=== PATIENT | male | born 1945 | race Caucasian/White ===

== ENCOUNTER → 2016-10-13 | Outpatient (CLI) | payer BC, MEDICAID ==
[~2016-10-13] MED LIST: ASPI-498 PO; ATOR20TA PO; CLOP75TA28 PO; ENAL5TAB92 PO; FEBU80TA PO; METO25TA62 PO
[2016-10-13 09:51] LABS: Basophils # (auto) 0 uL; Basophils % (auto) 0.4 % (0.0-2.0); Eosinophils # (auto) 0.2 uL; Eosinophils % (auto) 2.6 % (0.0-7.0); Hematocrit 41.4 % (41.0-53.0); Lymphocytes # (auto) 1.9 uL; Lymphocytes % (auto) 29.9 % (10.0-50.0); Mean Corpuscular Hemoglobin 29.5 pg (28.0-32.0); Mean Corpuscular Hgb Conc. 33.7 g/dL (32.0-36.0); Mean Corpuscular Volume 87.4 fL (80.0-100.0); Monocytes # (auto) 0.4 uL; Monocytes % (auto) 5.7 % (0.0-12.0); Neutrophils # (auto) 3.9 uL; Neutrophils % (auto) 61.4 % (37.0-80.0); Platelet Count (auto) 209 10^3/uL (140-450); Red Cell Distribution Width 14.4 % (11.6-16.0); White Blood Cell 6.3 10^3/uL (4.4-10.8)
[2016-10-13 10:43] LABS: Urine Bilirubin Negative (Negative); Urine Blood Negative /uL (Negative); Urine Color Yellow (Yellow); Urine Glucose Normal (Normal); Urine Ketone Negative (Negative); Urine Nitrite Negative (Negative); Urine RBC 1 /hpf (0 - 3); Urine Urobilinogen Normal (Negative)
[2016-10-13 11:20] LABS: Albumin 4.2 g/dL (3.4-5.0); BUN/Creatinine Ratio 13.3; Bilirubin, Total 0.6 mg/dL (0.2-1.0); Calcium 9.5 mg/dL (8.5-10.1); Potassium 4.3 mmol/L (3.5-5.1); Total Protein 7.5 g/dL (6.4-8.2)
== END | disposition home or self-care (01) ==
LOC: LAB 09:07
PROVIDERS: ATTEND Family Medicine
DX: M10.9 Gout, unspecified (principal); I10 Essential (primary) hypertension; E78.5 Hyperlipidemia, unspecified
CPT/HCPCS: 36415; 80053; 80061; 81001; 84153; 84154; 85025; 86592

== ENCOUNTER → 2017-06-01 | Outpatient (CLI) | payer BC ==
[2017-06-02 12:07] LABS: HSV 2 IgG Antibody >23.60 index (0.00-0.90)
== END | disposition home or self-care (01) ==
LOC: LAB 10:47
PROVIDERS: ATTEND Physician Assistant
DX: Z11.3 Encounter for screening for infections with a predominantly sexual mode of transmission (principal)
CPT/HCPCS: 36415; 86592; 86695; 86696; 86703; 86803

== ENCOUNTER 2018-07-06 00:17 | Emergency (ER) | payer MEDICARE, MEDICAID ==
[~2018-07-06] VITALS: Ht 188 cm; Wt 114.3 kg
[~2018-07-06 00:17] MED LIST changes: +ENAL5TAB PO; -ENAL5TAB92 PO
[2018-07-06 01:49] VITALS: BP 176/90
[2018-07-06 01:55] LABS: Basophils # (auto) 0.1 uL; Basophils % (auto) 0.5 % (0.0-2.0); Eosinophils # (auto) 0.3 uL; Hematocrit 41.6 % (41.0-53.0); Hemoglobin 14.2 g/dL (13.5-17.5); Lymphocytes # (auto) 2.2 uL; Lymphocytes % (auto) 16.9 % (10.0-50.0); Mean Corpuscular Hemoglobin 30.6 pg (28.0-32.0); Mean Corpuscular Volume 89.8 fL (80.0-100.0); Monocytes % (auto) 7.3 % (0.0-12.0); Neutrophils # (auto) 9.7 uL; Neutrophils % (auto) 73.3 % (37.0-80.0); Platelet Count (auto) 195 10^3/uL (140-450); Red Blood Cells 4.64 10^6/uL (4.5-5.90); Red Cell Distribution Width 13.4 % (11.8-14.3); White Blood Cell 13.3 10^3/uL (4.4-10.8)
[2018-07-06] MEDS ORDERED: methylPREDNISolone SOD SUCC 125 MG/2 ML VL IM ONE (02:30)
[2018-07-06] MEDS ORDERED: cefTRIAXone SOD 1,000 MG VL IM ONE (02:30)
[2018-07-06] MEDS ORDERED: cefTRIAXone SOD 1,000 MG VL ONE (02:47)
[2018-07-06] MEDS ORDERED: methylPREDNISolone SOD SUCC 125 MG/2 ML VL ONE (02:47)
== END 2018-07-06 03:00 | disposition home or self-care (01) ==
LOC: ER 00:19
DX: J02.0 Streptococcal pharyngitis (principal); J44.9 Chronic obstructive pulmonary disease, unspecified; E78.5 Hyperlipidemia, unspecified; I10 Essential (primary) hypertension; I25.2 Old myocardial infarction; M10.9 Gout, unspecified; Z79.82 Long term (current) use of aspirin; Z79.899 Other long term (current) drug therapy; Z98.61 Coronary angioplasty status
CPT/HCPCS: 36415; 71046; 85025; 96372; 99284; J0696; J2930

== ENCOUNTER → 2019-03-29 | Outpatient (CLI) | payer BC, MEDICAID ==
[2019-03-29 14:34] LABS: Basophils # (auto) 0 uL; Basophils % (auto) 0.7 % (0.0-2.0); Eosinophils # (auto) 0.2 uL; Eosinophils % (auto) 2.8 % (0.0-7.0); Hematocrit 43.7 % (41.0-53.0); Hemoglobin 14.9 g/dL (13.5-17.5); Lymphocytes # (auto) 1.9 uL; Lymphocytes % (auto) 27.5 % (10.0-50.0); Mean Corpuscular Hemoglobin 30.7 pg (28.0-32.0); Mean Corpuscular Hgb Conc. 34.1 g/dL (32.0-36.0); Mean Corpuscular Volume 89.9 fL (80.0-100.0); Monocytes # (auto) 0.4 uL; Monocytes % (auto) 6.1 % (0.0-12.0); Neutrophils # (auto) 4.3 uL; Neutrophils % (auto) 62.9 % (37.0-80.0); Platelet Count (auto) 184 10^3/uL (140-450); Red Blood Cells 4.86 10^6/uL (4.5-5.90); Red Cell Distribution Width 13.6 % (11.8-14.3); White Blood Cell 6.8 10^3/uL (4.4-10.8)
[2019-03-29 14:57] LABS: Albumin 4.6 g/dL (3.4-5.0); Calcium 8.9 mg/dL (8.5-10.1); Potassium 4.3 mmol/L (3.5-5.1)
[2019-03-29 15:00] LABS: BUN/Creatinine Ratio 28.6; Bilirubin, Total 0.7 mg/dL (0.2-1.0); Total Protein 8.2 g/dL (6.4-8.2)
== END | disposition home or self-care (01) ==
LOC: LAB 13:47
PROVIDERS: ATTEND Internal Medicine
DX: E78.5 Hyperlipidemia, unspecified (principal); I10 Essential (primary) hypertension; N40.0 Benign prostatic hyperplasia without lower urinary tract symptoms
CPT/HCPCS: 36415; 80053; 80061; 84153; 84443; 85025

== ENCOUNTER → 2020-01-27 | Outpatient (CLI) | payer BC, MEDICAID ==
[~2020-01-27] MED LIST changes: -ENAL5TAB PO; +ENAL5TAB10 PO; -METO25TA62 PO; +METO25TA93 PO
[2020-01-27 12:37] LABS: Basophils # (auto) 0.1 10 ^3/uL (0-0.2); Basophils % (auto) 1.1 % (0.0-2.0); Eosinophils # (auto) 0.2 10 ^3/uL (0-0.8); Eosinophils % (auto) 3.6 % (0.0-7.0); Hematocrit 41.1 % (41.0-53.0); Hemoglobin 13.7 g/dL (13.5-17.5); Lymphocytes # (auto) 1.9 10 ^3/uL (0.4-5.4); Lymphocytes % (auto) 34.6 % (10.0-50.0); Mean Corpuscular Hemoglobin 29.6 pg (28.0-32.0); Mean Corpuscular Hgb Conc. 33.3 g/dL (32.0-36.0); Mean Corpuscular Volume 88.9 fL (80.0-100.0); Monocytes # (auto) 0.5 10 ^3/uL (0-1.3); Monocytes % (auto) 8.9 % (0.0-12.0); Neutrophils # (auto) 2.8 10 ^3/uL (1.6-8.6); Neutrophils % (auto) 51.8 % (37.0-80.0); Nucleated Red Blood Cells % 0.1 %; Platelet Count (auto) 166 10^3/uL (140-450); Red Blood Cells 4.63 10^6/uL (4.5-5.90); Red Cell Distribution Width 13.8 % (11.8-14.3); White Blood Cell 5.4 10^3/uL (4.4-10.8)
[2020-01-27 13:25] LABS: Albumin 4.3 g/dL (3.4-5.0); BUN/Creatinine Ratio 17.6; Calcium 9.4 mg/dL (8.5-10.1); Potassium 4.1 mmol/L (3.5-5.1)
[2020-01-27 13:30] LABS: Bilirubin, Total 0.8 mg/dL (0.2-1.0); Total Protein 7.5 g/dL (6.4-8.2)
== END | disposition home or self-care (01) ==
LOC: LAB 12:25
PROVIDERS: ATTEND Internal Medicine
DX: I10 Essential (primary) hypertension (principal); E78.5 Hyperlipidemia, unspecified; M10.9 Gout, unspecified; R97.20 Elevated prostate specific antigen [PSA]
CPT/HCPCS: 36415; 80053; 80061; 84153; 84443; 84550; 85025

== ENCOUNTER 2020-02-13 13:47 | Emergency (ER) | payer MEDICARE, MEDICAID ==
[~2020-02-13] VITALS: Ht 188 cm; Wt 108.9 kg
[2020-02-13 14:49] VITALS: BP 108/63
[2020-02-13] MEDS ORDERED: ACETAMINOPHEN 500 MG TAB PO ONE (15:15)
== END 2020-02-13 15:21 | disposition home or self-care (01) ==
LOC: ER 13:47
DX: S60.222A Contusion of left hand, initial encounter (principal); M19.042 Primary osteoarthritis, left hand; J44.9 Chronic obstructive pulmonary disease, unspecified; M10.9 Gout, unspecified; E78.5 Hyperlipidemia, unspecified; I10 Essential (primary) hypertension; I25.2 Old myocardial infarction; W22.8XXA Striking against or struck by other objects, initial encounter; Y93.89 Activity, other specified; Y92.89 Other specified places as the place of occurrence of the external cause; Y99.8 Other external cause status
CPT/HCPCS: 73130

== ENCOUNTER 2020-12-22 17:36 | Inpatient (IN) | payer BC, MEDICAID ==
[~2020-12-22] VITALS: Ht 180.3 cm; Wt 95.8 kg
[2020-12-22] MEDS ORDERED: SODIUM CHLORIDE 0.9% 500 ML IV ONE (19:00)
[2020-12-22 19:12] LABS: Basophils # (auto) 0.1 10 ^3/uL (0-0.2); Basophils % (auto) 1.2 % (0.0-2.0); Eosinophils # (auto) 0.1 10 ^3/uL (0-0.8); Eosinophils % (auto) 0.7 % (0.0-7.0); Hematocrit 30.9 % (41.0-53.0); Hemoglobin 10.7 g/dL (13.5-17.5); Lymphocytes # (auto) 1.3 10 ^3/uL (0.4-5.4); Lymphocytes % (auto) 15.5 % (10.0-50.0); Mean Corpuscular Hemoglobin 29.1 pg (28.0-32.0); Mean Corpuscular Hgb Conc. 34.8 g/dL (32.0-36.0); Mean Corpuscular Volume 83.7 fL (80.0-100.0); Monocytes # (auto) 0.8 10 ^3/uL (0-1.3); Monocytes % (auto) 9.4 % (0.0-12.0); Neutrophils # (auto) 6.3 10 ^3/uL (1.6-8.6); Neutrophils % (auto) 73.2 % (37.0-80.0); Red Blood Cells 3.69 10^6/uL (4.5-5.90); Red Cell Distribution Width 14.7 % (11.8-14.3); White Blood Cell 8.5 10^3/uL (4.4-10.8)
[2020-12-22 19:23] LABS: Albumin 2.9 g/dL (3.4-5.0); Calcium 9.7 mg/dL (8.5-10.1); Potassium 4.9 mmol/L (3.5-5.1)
[2020-12-22 19:24] LABS: BUN/Creatinine Ratio 26.7
[2020-12-22 19:27] LABS: Bilirubin, Total 0.7 mg/dL (0.2-1.0)
[2020-12-22] MEDS ORDERED: ACETAMINOPHEN 325 MG TAB PO PRN (22:15)
[2020-12-22] MEDS ORDERED: ONDANSETRON HCL 4 MG/2 ML VIAL IV PRN (22:15)
[2020-12-22] MEDS: HYDROcodone-ACET 5/325MG TAB PO PRN (22:38)
[2020-12-23 01:28] VITALS: BP 134/72
[2020-12-23 05:00] VITALS: BP 135/65
[2020-12-23 05:55] LABS: Basophils # (auto) 0.1 10 ^3/uL (0-0.2); Eosinophils # (auto) 0.1 10 ^3/uL (0-0.8); Eosinophils % (auto) 1.1 % (0.0-7.0); Hematocrit 27.9 % (41.0-53.0); Hemoglobin 9.9 g/dL (13.5-17.5); Lymphocytes # (auto) 1.8 10 ^3/uL (0.4-5.4); Lymphocytes % (auto) 23.4 % (10.0-50.0); Mean Corpuscular Hemoglobin 29.7 pg (28.0-32.0); Mean Corpuscular Hgb Conc. 35.7 g/dL (32.0-36.0); Mean Corpuscular Volume 83.2 fL (80.0-100.0); Monocytes # (auto) 0.6 10 ^3/uL (0-1.3); Monocytes % (auto) 8.3 % (0.0-12.0); Neutrophils % (auto) 66.2 % (37.0-80.0); Red Blood Cells 3.35 10^6/uL (4.5-5.90); Red Cell Distribution Width 14.5 % (11.8-14.3); White Blood Cell 7.6 10^3/uL (4.4-10.8)
[2020-12-23] MEDS: CLINDAMYCIN 600MG IV 50 ML IV SCH ×3 (06:00→21:41)
[2020-12-23 06:13] LABS: Albumin 2.8 g/dL (3.4-5.0); Calcium 9.4 mg/dL (8.5-10.1); Potassium 4.5 mmol/L (3.5-5.1)
[2020-12-23 06:16] LABS: BUN/Creatinine Ratio 33.6; Bilirubin, Total 0.5 mg/dL (0.2-1.0)
[2020-12-23] MEDS: MORPHINE SULFATE 4 MG/ML SYR/VIAL IV PRN (07:56)
[2020-12-23 09:00] VITALS: BP 131/72
[2020-12-23] MEDS: cefTRIAXone 1GM/50ML D5W 50 ML IV SCH (09:31)
[2020-12-23] MEDS: CLOPIDOGREL BISULFATE 75 MG TAB PO SCH (09:31)
[2020-12-23] MEDS: PANTOPRAZOLE 40 MG TAB PO SCH (09:31)
[2020-12-23] MEDS: ENALAPRIL MALEATE 2.5 MG TAB PO SCH (09:32)
[2020-12-23] MEDS: METOPROLOL SUCCINATE XL 50 MG TAB PO SCH (09:32)
[2020-12-23 13:00] VITALS: BP 132/76
[2020-12-23] MEDS: HYDROcodone-ACET 5/325MG TAB PO PRN (13:02)
[2020-12-23 17:00] VITALS: BP 123/64
[2020-12-23] MEDS: ATORVASTATIN 20 MG TAB PO SCH (21:41)
[2020-12-23 22:00] VITALS: BP 121/48
[2020-12-24] MEDS ORDERED: MORPHINE SULF INJ 2 MG/ML SYRINGE 1ML ONE (01:00)
[2020-12-24] MEDS: MORPHINE SULFATE 4 MG/ML SYR/VIAL IV PRN (01:11)
[2020-12-24 05:00] VITALS: BP 115/66
[2020-12-24] MEDS: CLINDAMYCIN 600MG IV 50 ML IV SCH ×3 (06:17→21:58)
[2020-12-24] MEDS: PANTOPRAZOLE 40 MG TAB PO SCH (08:26)
[2020-12-24] MEDS: CLOPIDOGREL BISULFATE 75 MG TAB PO SCH (08:26)
[2020-12-24] MEDS: METOPROLOL SUCCINATE XL 50 MG TAB PO SCH (08:27)
[2020-12-24] MEDS: ENALAPRIL MALEATE 2.5 MG TAB PO SCH (08:28)
[2020-12-24] MEDS: cefTRIAXone 1GM/50ML D5W 50 ML IV SCH (08:28)
[2020-12-24 09:00] VITALS: BP 126/71
[2020-12-24] MEDS ORDERED: HEPARIN DRIP/D5W 100UNITS/ML 250 ML IV SCH (09:30)
[2020-12-24] MEDS ORDERED: HEPARIN SODIUM (PORCINE) 5000 UNITS/ML 1ML VIAL IV ONE (09:30)
[2020-12-24 10:13] LABS: Basophils # (auto) 0.1 10 ^3/uL (0-0.2); Basophils % (auto) 0.7 % (0.0-2.0); Eosinophils # (auto) 0 10 ^3/uL (0-0.8); Eosinophils % (auto) 0.3 % (0.0-7.0); Hematocrit 28.7 % (41.0-53.0); Lymphocytes # (auto) 1.7 10 ^3/uL (0.4-5.4); Lymphocytes % (auto) 17.6 % (10.0-50.0); Mean Corpuscular Hemoglobin 28.8 pg (28.0-32.0); Mean Corpuscular Hgb Conc. 34.7 g/dL (32.0-36.0); Mean Corpuscular Volume 83.1 fL (80.0-100.0); Monocytes # (auto) 0.8 10 ^3/uL (0-1.3); Monocytes % (auto) 7.9 % (0.0-12.0); Neutrophils % (auto) 73.5 % (37.0-80.0); Nucleated Red Blood Cells % 0.1 %; Red Blood Cells 3.46 10^6/uL (4.5-5.90); Red Cell Distribution Width 14.7 % (11.8-14.3); White Blood Cell 9.5 10^3/uL (4.4-10.8)
[2020-12-24 10:20] LABS: INR 1.18 (0.9-1.15); Partial Thromboplastin Time 31.2 sec (23.0-31.2)
[2020-12-24 11:02] LABS: Albumin 2.7 g/dL (3.4-5.0); Calcium 9.1 mg/dL (8.5-10.1); Potassium 4.6 mmol/L (3.5-5.1)
[2020-12-24 11:06] LABS: BUN/Creatinine Ratio 32.7; Bilirubin, Total 0.4 mg/dL (0.2-1.0); Total Protein 7.9 g/dL (6.4-8.2)
[2020-12-24] MEDS: NITROGLYCERIN 0.2MG/HR TOPICAL PATCH TD SCH (11:24)
[2020-12-24 13:00] VITALS: BP 126/64
[2020-12-24] MEDS ORDERED: ANGIOMAX 250 MG VIAL IV ONE (15:59)
[2020-12-24] MEDS ORDERED: HEPARIN SODIUM (PORCINE) 5000 UNITS/ML 1ML VIAL ONE ×2 (16:00→16:53)
[2020-12-24] MEDS ORDERED: LIDOCAINE 2%HCL (LOCAL ANESTH.) INJ 20ML MDV ONE (16:00)
[2020-12-24] MEDS ORDERED: IOHEXOL 350 MG/ML 100ML IJ ONE (16:00)
[2020-12-24] MEDS ORDERED: MIDAZOLAM HCL 1MG/1ML-2 ML VIAL ONE (16:00)
[2020-12-24] MEDS ORDERED: SODIUM CHL 0.9% 0 ML ONE (16:00)
[2020-12-24] MEDS ORDERED: fentaNYL CITRATE 100 MCG/2 ML VL ONE (16:00)
[2020-12-24] MEDS ORDERED: VERAPAMIL 2.5MG/ML INJ 2ML VIAL IV ONE (16:00)
[2020-12-24] MEDS: ATORVASTATIN 20 MG TAB PO SCH (21:58)
[2020-12-24 22:00] VITALS: BP 111/63
[2020-12-24] MEDS: ENOXAPARIN SOD 100 MG/1 ML SYRINGE SC SCH (23:12)
[2020-12-25 05:00] VITALS: BP 121/71
[2020-12-25] MEDS: CLINDAMYCIN 600MG IV 50 ML IV SCH ×4 (06:04→22:13)
[2020-12-25 06:12] LABS: Urine WBC None Seen /hpf (0 - 3)
[2020-12-25 06:18] LABS: Basophils # (auto) 0 10 ^3/uL (0-0.2); Basophils % (auto) 0.5 % (0.0-2.0); Eosinophils # (auto) 0 10 ^3/uL (0-0.8); Eosinophils % (auto) 0.3 % (0.0-7.0); Hematocrit 27.8 % (41.0-53.0); Hemoglobin 9.8 g/dL (13.5-17.5); Lymphocytes # (auto) 1.9 10 ^3/uL (0.4-5.4); Lymphocytes % (auto) 21.6 % (10.0-50.0); Mean Corpuscular Hemoglobin 29.1 pg (28.0-32.0); Mean Corpuscular Hgb Conc. 35.2 g/dL (32.0-36.0); Mean Corpuscular Volume 82.8 fL (80.0-100.0); Monocytes # (auto) 0.7 10 ^3/uL (0-1.3); Monocytes % (auto) 8.6 % (0.0-12.0); Red Blood Cells 3.36 10^6/uL (4.5-5.90); Red Cell Distribution Width 14.6 % (11.8-14.3); White Blood Cell 8.8 10^3/uL (4.4-10.8)
[2020-12-25 06:24] LABS: INR 1.21 (0.9-1.15); Partial Thromboplastin Time 37.4 sec (23.0-31.2)
[2020-12-25 06:30] LABS: Urine Bacteria NONE SEEN /hpf (None Seen); Urine Blood Negative /uL (Negative); Urine Mucus FEW (None Seen)
[2020-12-25 06:33] LABS: Urine Specific Gravity > 1.050 (1.001-1.035)
[2020-12-25 06:38] LABS: Potassium 4.3 mmol/L (3.5-5.1)
[2020-12-25 06:56] LABS: BUN/Creatinine Ratio 33.3; Calcium 9.1 mg/dL (8.5-10.1)
[2020-12-25 09:00] VITALS: BP 101/65
[2020-12-25] MEDS: cefTRIAXone 1GM/50ML D5W 50 ML IV SCH (09:00)
[2020-12-25] MEDS: CLOPIDOGREL BISULFATE 75 MG TAB PO SCH (10:00)
[2020-12-25] MEDS: ENALAPRIL MALEATE 2.5 MG TAB PO SCH (10:00)
[2020-12-25] MEDS: METOPROLOL SUCCINATE XL 50 MG TAB PO SCH (10:00)
[2020-12-25] MEDS: ENOXAPARIN SOD 100 MG/1 ML SYRINGE SC SCH ×2 (10:50→22:13)
[2020-12-25] MEDS: NITROGLYCERIN 0.2MG/HR TOPICAL PATCH TD SCH (10:50)
[2020-12-25] MEDS ORDERED: BACITRACIN INJ 50000 UNIT VIAL ONE (12:27)
[2020-12-25] MEDS ORDERED: SODIUM BICARBONATE 8.4 % INJ 50ML VIAL IV ONE (12:32)
[2020-12-25] MEDS ORDERED: LIDOCAINE HCL 2 %PF INJ 10ML AMP IJ ONE (12:32)
[2020-12-25] MEDS ORDERED: LIDOCAINE 1%-Mpf/Epinephrine 1:200,000 ONE (12:34)
[2020-12-25 13:00] VITALS: BP 133/64
[2020-12-25] MEDS ORDERED: BUPIVACAINE 0.25% INJ 50ML VIAL ONE (13:00)
[2020-12-25] MEDS ORDERED: HYDROmorphone HCL 2 MG/ML VL ONE (13:07)
[2020-12-25] MEDS ORDERED: ONDANSETRON HCL 4 MG/2 ML VIAL ONE (13:10)
[2020-12-25] MEDS ORDERED: fentaNYL CITRATE 100 MCG/2 ML VL ONE (13:38)
[2020-12-25] MEDS ORDERED: ONDANSETRON HCL 4 MG/2 ML VIAL IV PRN (14:45)
[2020-12-25] MEDS ORDERED: HYDROmorphone HCL 2 MG/ML VL IV PRN ×2 (14:45)
[2020-12-25] MEDS: HYDROcodone-ACET 5/325MG TAB PO PRN (16:16)
[2020-12-25 17:00] VITALS: BP 117/66
[2020-12-25] MEDS: MORPHINE SULFATE 4 MG/ML SYR/VIAL IV PRN (17:26)
[2020-12-25 22:00] VITALS: BP 132/74
[2020-12-25] MEDS: ATORVASTATIN 20 MG TAB PO SCH (22:13)
[2020-12-26] VITALS (65 sets, daily range): BP systolic 58–132; BP diastolic 33–92
[2020-12-26] MEDS ORDERED: SODIUM CHLORIDE 0.9% 500 ML IV ONE (04:30)
[2020-12-26 05:20] LABS: Hemoglobin 7.3 g/dL (13.5-17.5); Mean Corpuscular Hemoglobin 28.7 pg (28.0-32.0); Mean Corpuscular Hgb Conc. 34.1 g/dL (32.0-36.0); White Blood Cell 19.1 10^3/uL (4.4-10.8)
[2020-12-26 05:23] LABS: Hematocrit 21.2 % (41.0-53.0); Mean Corpuscular Volume 84.1 fL (80.0-100.0); Red Blood Cells 2.53 10^6/uL (4.5-5.90); Red Cell Distribution Width 14.5 % (11.8-14.3)
[2020-12-26 05:37] LABS: Basophils % (manual) 0 (0.0-2.0); Blast Cells 0; Eosinophils % (manual) 0 (0-7); Metamyelocytes % 0; Myelocytes % 0; Promyelocytes % 0; Reactive Lymphocytes 0
[2020-12-26 05:39] LABS: INR 1.4 (0.9-1.15)
[2020-12-26] MEDS: CLINDAMYCIN 600MG IV 50 ML IV SCH ×2 (06:03→14:20)
[2020-12-26 06:19] LABS: Band Neutrophils % (manual) 6
[2020-12-26 06:20] LABS: Lymphocytes % (manual) 6 (10.0-50.0); Monocytes % (manual) 6 (0-12)
[2020-12-26] MEDS ORDERED: DOPamine 1600MCG/ML D5W 250 ML IV SCH (08:30)
[2020-12-26] MEDS: DOPamine 1600MCG/ML D5W 250 ML IV SCH ×2 (08:45→22:41)
[2020-12-26] MEDS ORDERED: LIDOCAINE 1% (LOCAL ANESTH.) PF 5ml SDV ID ONE (10:00)
[2020-12-26] MEDS: NITROGLYCERIN 0.2MG/HR TOPICAL PATCH TD SCH (10:00)
[2020-12-26] MEDS: ENALAPRIL MALEATE 2.5 MG TAB PO SCH (10:00)
[2020-12-26] MEDS: SODIUM CHLOR 0.9% PF (SALINE LOCK) 10ML VIAL/SYR IV SCH ×2 (10:00→23:37)
[2020-12-26] MEDS: METOPROLOL SUCCINATE XL 50 MG TAB PO SCH (10:00)
[2020-12-26] MEDS: HYDROcodone-ACET 5/325MG TAB PO PRN (10:17)
[2020-12-26] MEDS: NOREPINEPHRINE 8 MG/250ML KIT 250 ML IV SCH (11:07)
[2020-12-26] MEDS: cefTRIAXone 1GM/50ML D5W 50 ML IV SCH (11:23)
[2020-12-26 17:35] LABS: Hematocrit 24.5 % (41.0-53.0); Hemoglobin 8.3 g/dL (13.5-17.5)
[2020-12-26] MEDS: MORPHINE SULFATE 4 MG/ML SYR/VIAL IV PRN (20:09)
[2020-12-26] MEDS ORDERED: ATORVASTATIN 20 MG TAB PO SCH (22:00)
[2020-12-26] MEDS: CIPROFLOXACIN 400MG/200ML 200 ML IV SCH (23:37)
[2020-12-27] VITALS (68 sets, daily range): BP systolic 96–126; BP diastolic 47–85
[2020-12-27] MEDS: MORPHINE SULFATE 4 MG/ML SYR/VIAL IV PRN ×2 (02:09→15:27)
[2020-12-27 04:08] LABS: Basophils # (auto) 0 10 ^3/uL (0-0.2); Eosinophils # (auto) 0 10 ^3/uL (0-0.8); Hemoglobin 7.2 g/dL (13.5-17.5); Lymphocytes % (auto) 11.8 % (10.0-50.0); Neutrophils # (auto) 13.4 10 ^3/uL (1.6-8.6); Red Cell Distribution Width 16.1 % (11.8-14.3); White Blood Cell 16.6 10^3/uL (4.4-10.8)
[2020-12-27 04:11] LABS: Basophils % (auto) 0.2 % (0.0-2.0); Hematocrit 20.6 % (41.0-53.0); Mean Corpuscular Hemoglobin 28.1 pg (28.0-32.0); Mean Corpuscular Hgb Conc. 35.1 g/dL (32.0-36.0); Monocytes # (auto) 1.3 10 ^3/uL (0-1.3); Monocytes % (auto) 7.6 % (0.0-12.0); Neutrophils % (auto) 80.4 % (37.0-80.0); Red Blood Cells 2.57 10^6/uL (4.5-5.90)
[2020-12-27 04:21] LABS: Magnesium 2.4 mg/dL (1.6-2.6); Potassium 4.3 mmol/L (3.5-5.1)
[2020-12-27 04:25] LABS: INR 1.13 (0.9-1.15); Partial Thromboplastin Time 35.5 sec (23.0-31.2)
[2020-12-27] MEDS: NOREPINEPHRINE 8 MG/250ML KIT 250 ML IV SCH (08:30)
[2020-12-27] MEDS: METOPROLOL SUCCINATE XL 50 MG TAB PO SCH (10:00)
[2020-12-27] MEDS: NITROGLYCERIN 0.2MG/HR TOPICAL PATCH TD SCH (10:00)
[2020-12-27] MEDS: ENALAPRIL MALEATE 2.5 MG TAB PO SCH (10:00)
[2020-12-27] MEDS: CIPROFLOXACIN 400MG/200ML 200 ML IV SCH (10:28)
[2020-12-27] MEDS: SODIUM CHLOR 0.9% PF (SALINE LOCK) 10ML VIAL/SYR IV SCH (10:29)
== END 2020-12-27 17:30 | disposition short-term general hospital (02) | DRG 856 ==
LOC: ER 17:36 → EDBD 17:36 → OVERFLOW 22:15 → WEST WING 23:20 → TELE-WESTW 12-24 08:52 → ICU WEST 12-26 08:26
PROVIDERS: ADMIT Nurse Practitioner; ATTEND Internal Medicine
PROC: 0S9C3ZZ Drainage of Right Knee Joint, Percutaneous Approach (ICD-10-PCS; principal; 2020-12-24)
PROC: 4A023N7 Measurement of Cardiac Sampling and Pressure, Left Heart, Percutaneous Approach (ICD-10-PCS; 2020-12-24)
PROC: B2111ZZ Fluoroscopy of Multiple Coronary Arteries using Low Osmolar Contrast (ICD-10-PCS; 2020-12-24)
PROC: B2151ZZ Fluoroscopy of Left Heart using Low Osmolar Contrast (ICD-10-PCS; 2020-12-24)
PROC: 0LBQ0ZZ Excision of Right Knee Tendon, Open Approach (ICD-10-PCS; 2020-12-25)
PROC: 30233K1 Transfusion of Nonautologous Frozen Plasma into Peripheral Vein, Percutaneous Approach (ICD-10-PCS; 2020-12-26)
PROC: 30233N1 Transfusion of Nonautologous Red Blood Cells into Peripheral Vein, Percutaneous Approach (ICD-10-PCS; 2020-12-26)
PROC: 02HV33Z Insertion of Infusion Device into Superior Vena Cava, Percutaneous Approach (ICD-10-PCS; 2020-12-26)
PROC: B548ZZA Ultrasonography of Superior Vena Cava, Guidance (ICD-10-PCS; 2020-12-26)
DX: T81.41XA Infection following a procedure, superficial incisional surgical site, initial encounter (principal); I21.4 Non-ST elevation (NSTEMI) myocardial infarction; E43 Unspecified severe protein-calorie malnutrition; N17.0 Acute kidney failure with tubular necrosis; L03.115 Cellulitis of right lower limb; T81.30XA Disruption of wound, unspecified, initial encounter; M00.9 Pyogenic arthritis, unspecified; N18.9 Chronic kidney disease, unspecified; E66.9 Obesity, unspecified; E78.5 Hyperlipidemia, unspecified; J44.9 Chronic obstructive pulmonary disease, unspecified; Z68.30 Body mass index [BMI] 30.0-30.9, adult; D63.8 Anemia in other chronic diseases classified elsewhere; I12.9 Hypertensive chronic kidney disease with stage 1 through stage 4 chronic kidney disease, or unspecified chronic kidney disease; I25.10 Atherosclerotic heart disease of native coronary artery without angina pectoris; Z98.61 Coronary angioplasty status; Y83.8 Other surgical procedures as the cause of abnormal reaction of the patient, or of later complication, without mention of misadventure at the time of the procedure; Y92.89 Other specified places as the place of occurrence of the external cause; Z79.82 Long term (current) use of aspirin
CPT/HCPCS: 36415; 36569; 71045; 73560; 73721; 80048; 80053; 81001; 83735; 83880; 84484; 85007; 85014; 85018; 85025; 85027; 85049; 85610; 85730; 86850; 86900; 86901; 86920; 87040; 87070; 87075; 87077; 87081; 87186; 87205; 87426; 89051; 93005; 93306; 93458; 96361; 96365; 99152; A4565; G0378; J0696; J2250; J2405; J3490

== ENCOUNTER 2021-02-05 04:58 | Inpatient (IN) | payer BC, MEDICAID ==
[~2021-02-05] VITALS: Ht 188 cm; Wt 85.6 kg
[2021-02-05 05:46] VITALS: BP 116/77
[2021-02-05] MEDS ORDERED: ACETAMINOPHEN 325 MG TAB PO PRN (07:15)
[2021-02-05] MEDS ORDERED: MORPHINE SULFATE INJECTION 2 MG/ML SYRG IV PRN (07:15)
[2021-02-05] MEDS ORDERED: NITROGLYCERIN 0.4 MG SL TAB SL PRN (07:15)
[2021-02-05] MEDS ORDERED: ONDANSETRON HCL 4 MG/2 ML VIAL IV PRN (07:15)
[2021-02-05 09:00] VITALS: BP 118/69
[2021-02-05 09:17] LABS: Basophils # (auto) 0.1 10 ^3/uL (0-0.2); Basophils % (auto) 1.3 % (0.0-2.0); Eosinophils # (auto) 0 10 ^3/uL (0-0.8); Eosinophils % (auto) 0.4 % (0.0-7.0); Hematocrit 26.7 % (41.0-53.0); Lymphocytes # (auto) 1.5 10 ^3/uL (0.4-5.4); Lymphocytes % (auto) 30.2 % (10.0-50.0); Mean Corpuscular Hemoglobin 28.6 pg (28.0-32.0); Mean Corpuscular Hgb Conc. 33.6 g/dL (32.0-36.0); Mean Corpuscular Volume 85.3 fL (80.0-100.0); Monocytes # (auto) 0.4 10 ^3/uL (0-1.3); Monocytes % (auto) 8.6 % (0.0-12.0); Neutrophils % (auto) 59.5 % (37.0-80.0); Red Blood Cells 3.13 10^6/uL (4.5-5.90)
[2021-02-05 09:31] LABS: INR 1.18 (0.9-1.15); Partial Thromboplastin Time 28.5 sec (23.6-33.0)
[2021-02-05 09:45] LABS: Albumin 2.5 g/dL (3.4-5.0); Calcium 8.8 mg/dL (8.5-10.1); Potassium 3.8 mmol/L (3.5-5.1)
[2021-02-05 09:50] LABS: BUN/Creatinine Ratio 8.3; Bilirubin, Total 0.7 mg/dL (0.2-1.0); Total Protein 6.6 g/dL (6.4-8.2)
[2021-02-05] MEDS: CLOPIDOGREL BISULFATE 75 MG TAB PO SCH (10:00)
[2021-02-05] MEDS ORDERED: METOPROLOL SUCCINATE XL 50 MG TAB PO SCH (10:00)
[2021-02-05] MEDS: ASPirin 81 mg TAB PO SCH (10:00)
[2021-02-05] MEDS ORDERED: ENALAPRIL MALEATE 2.5 MG TAB PO SCH (10:00)
[2021-02-05] MEDS: PANTOPRAZOLE 40 MG TAB PO SCH (10:00)
[2021-02-05 13:00] VITALS: BP 102/65
[2021-02-05 16:41] VITALS: BP 91/56
[2021-02-05 22:00] VITALS: BP 94/56
[2021-02-05] MEDS: ATORVASTATIN 20 MG TAB PO SCH (22:27)
[2021-02-06 04:00] LABS: Urine Bacteria FEW /hpf (None Seen); Urine Blood Negative /uL (Negative); Urine Hyaline Cast FEW /lpf (0 - 2); Urine WBC 2 /hpf (0 - 3)
[2021-02-06 05:00] VITALS: BP 84/54
[2021-02-06 05:18] LABS: Basophils # (auto) 0.1 10 ^3/uL (0-0.2); Basophils % (auto) 1.5 % (0.0-2.0); Eosinophils # (auto) 0 10 ^3/uL (0-0.8); Eosinophils % (auto) 0.4 % (0.0-7.0); Hematocrit 24.8 % (41.0-53.0); Hemoglobin 8.5 g/dL (13.5-17.5); Lymphocytes # (auto) 1.5 10 ^3/uL (0.4-5.4); Lymphocytes % (auto) 31.6 % (10.0-50.0); Mean Corpuscular Hgb Conc. 34.4 g/dL (32.0-36.0); Mean Corpuscular Volume 84.3 fL (80.0-100.0); Monocytes # (auto) 0.4 10 ^3/uL (0-1.3); Neutrophils # (auto) 2.8 10 ^3/uL (1.6-8.6); Neutrophils % (auto) 57.5 % (37.0-80.0); Red Blood Cells 2.94 10^6/uL (4.5-5.90); Red Cell Distribution Width 15.8 % (11.8-14.3); White Blood Cell 4.9 10^3/uL (4.4-10.8)
[2021-02-06 05:31] LABS: Calcium 8.5 mg/dL (8.5-10.1); Potassium 3.6 mmol/L (3.5-5.1)
[2021-02-06 05:35] LABS: BUN/Creatinine Ratio 11.5
[2021-02-06] MEDS ORDERED: POLYETHYLENE GLYCOL 17 GM PWDR PO ONE (08:45)
[2021-02-06 09:00] VITALS: BP 115/72
[2021-02-06] MEDS: ASPirin 81 mg TAB PO SCH (10:00)
[2021-02-06] MEDS: CLOPIDOGREL BISULFATE 75 MG TAB PO SCH (10:00)
[2021-02-06] MEDS: PANTOPRAZOLE 40 MG TAB PO SCH (10:00)
[2021-02-06] MEDS: ENOXAPARIN SOD 30 MG/0.3 ML SYRINGE SC SCH (10:00)
[2021-02-06 13:00] VITALS: BP 86/51
[2021-02-06] MEDS ORDERED: SODIUM CHLORIDE 0.9% 500 ML IV ONE (13:00)
[2021-02-06 17:00] VITALS: BP 102/55
[2021-02-06] MEDS: Ensure HIGH Protein Chocolate 8oz Bottle PO SCH (18:00)
[2021-02-06 22:00] VITALS: BP 109/74
[2021-02-06] MEDS: ATORVASTATIN 20 MG TAB PO SCH (22:30)
[2021-02-07 05:00] VITALS: BP 112/68
[2021-02-07 05:23] LABS: Basophils # (auto) 0.1 10 ^3/uL (0-0.2); Eosinophils # (auto) 0 10 ^3/uL (0-0.8); Lymphocytes # (auto) 1.7 10 ^3/uL (0.4-5.4); Mean Corpuscular Hemoglobin 28.8 pg (28.0-32.0); Monocytes # (auto) 0.4 10 ^3/uL (0-1.3); Neutrophils # (auto) 2.2 10 ^3/uL (1.6-8.6)
[2021-02-07 05:25] LABS: Eosinophils % (auto) 0.4 % (0.0-7.0); Hematocrit 24.2 % (41.0-53.0); Hemoglobin 8.3 g/dL (13.5-17.5); Lymphocytes % (auto) 38.8 % (10.0-50.0); Mean Corpuscular Hgb Conc. 34.3 g/dL (32.0-36.0); Mean Corpuscular Volume 83.9 fL (80.0-100.0); Monocytes % (auto) 8.6 % (0.0-12.0); Neutrophils % (auto) 50.2 % (37.0-80.0); Nucleated Red Blood Cells % 0.1 %; Red Blood Cells 2.88 10^6/uL (4.5-5.90); Red Cell Distribution Width 15.6 % (11.8-14.3); White Blood Cell 4.3 10^3/uL (4.4-10.8)
[2021-02-07 06:00] LABS: % Iron Saturation 22.4 % (20-55)
[2021-02-07 06:02] LABS: BUN/Creatinine Ratio 13.3; Calcium 8.4 mg/dL (8.5-10.1); Magnesium 1.6 mg/dL (1.6-2.6); Phosphorus 3.5 mg/dL (2.5-4.90); Potassium 3.5 mmol/L (3.5-5.1)
[2021-02-07] MEDS: Ensure HIGH Protein Chocolate 8oz Bottle PO SCH ×2 (08:00→18:00)
[2021-02-07 09:00] VITALS: BP 107/67
[2021-02-07] MEDS ORDERED: MAGNESIUM SULFATE 1GM/100ML 100 ML IV ONE (09:45)
[2021-02-07] MEDS: CLOPIDOGREL BISULFATE 75 MG TAB PO SCH (10:00)
[2021-02-07] MEDS: ENOXAPARIN SOD 30 MG/0.3 ML SYRINGE SC SCH (10:00)
[2021-02-07] MEDS: ASPirin 81 mg TAB PO SCH (10:00)
[2021-02-07] MEDS: FUROSEMIDE 20 MG TAB PO SCH (10:00)
[2021-02-07] MEDS: PANTOPRAZOLE 40 MG TAB PO SCH (10:00)
[2021-02-07] MEDS: MAGNESIUM OXIDE 400 MG TAB PO SCH (10:00)
[2021-02-07] MEDS ORDERED: IRON SUCROSE COMPLEX 200 MG in SODIUM CHL 0.9% 100 ML IV SCH (12:00)
[2021-02-07] MEDS: SODIUM FERR GLUC 125 MG in NS 100 ML IV SCH (12:00)
[2021-02-07 13:00] VITALS: BP 105/71
[2021-02-07] MEDS: POLYETHYLENE GLYCOL 17 GM PWDR PO PRN (14:42)
[2021-02-07 17:00] VITALS: BP 121/73
[2021-02-07] MEDS: ATORVASTATIN 20 MG TAB PO SCH (21:40)
[2021-02-07 22:00] VITALS: BP 105/62
[2021-02-08 05:00] VITALS: BP 104/63
[2021-02-08] MEDS: Ensure HIGH Protein Chocolate 8oz Bottle PO SCH ×2 (08:00→18:20)
[2021-02-08 09:00] VITALS: BP 105/64
[2021-02-08 09:13] LABS: Basophils # (auto) 0.1 10 ^3/uL (0-0.2); Basophils % (auto) 1.4 % (0.0-2.0); Eosinophils # (auto) 0 10 ^3/uL (0-0.8); Eosinophils % (auto) 0.5 % (0.0-7.0); Hematocrit 26.7 % (41.0-53.0); Hemoglobin 9.1 g/dL (13.5-17.5); Lymphocytes # (auto) 1.5 10 ^3/uL (0.4-5.4); Lymphocytes % (auto) 32.5 % (10.0-50.0); Mean Corpuscular Hgb Conc. 34.3 g/dL (32.0-36.0); Mean Corpuscular Volume 84.7 fL (80.0-100.0); Monocytes # (auto) 0.4 10 ^3/uL (0-1.3); Monocytes % (auto) 8.6 % (0.0-12.0); Neutrophils # (auto) 2.6 10 ^3/uL (1.6-8.6); Red Blood Cells 3.15 10^6/uL (4.5-5.90); Red Cell Distribution Width 15.9 % (11.8-14.3); White Blood Cell 4.5 10^3/uL (4.4-10.8)
[2021-02-08 09:26] LABS: Folate (Folic Acid) 9.1 ng/mL (5.38-24)
[2021-02-08] MEDS: ASPirin 81 mg TAB PO SCH (09:28)
[2021-02-08] MEDS: FUROSEMIDE 20 MG TAB PO SCH (09:28)
[2021-02-08] MEDS: POLYETHYLENE GLYCOL 17 GM PWDR PO PRN (09:28)
[2021-02-08] MEDS: CLOPIDOGREL BISULFATE 75 MG TAB PO SCH (09:28)
[2021-02-08] MEDS: MAGNESIUM OXIDE 400 MG TAB PO SCH (09:28)
[2021-02-08] MEDS: PANTOPRAZOLE 40 MG TAB PO SCH (09:28)
[2021-02-08] MEDS: ENOXAPARIN SOD 40 MG/0.4 ML SYRINGE SC SCH (09:29)
[2021-02-08 09:49] LABS: BUN/Creatinine Ratio 14.1; Calcium 8.8 mg/dL (8.5-10.1); Potassium 3.4 mmol/L (3.5-5.1)
[2021-02-08] MEDS ORDERED: CYANOCOBALAMIN (B-12) 1000 MCG/1 ML VIAL IM ONE (12:15)
[2021-02-08] MEDS ORDERED: POTASSIUM CHL 20 Meq TABLET PO ONE (12:15)
[2021-02-08] MEDS: SODIUM FERR GLUC 125 MG in NS 100 ML IV SCH (12:40)
[2021-02-08 13:18] VITALS: BP 95/64
[2021-02-08 17:24] VITALS: BP 116/69
[2021-02-08 22:00] VITALS: BP 105/62
[2021-02-08] MEDS: ATORVASTATIN 20 MG TAB PO SCH (22:36)
[2021-02-09 05:00] VITALS: BP 98/66
[2021-02-09] MEDS: Ensure HIGH Protein Chocolate 8oz Bottle PO SCH ×2 (08:00→18:00)
[2021-02-09] MEDS: PANTOPRAZOLE 40 MG TAB PO SCH (08:49)
[2021-02-09] MEDS: MAGNESIUM OXIDE 400 MG TAB PO SCH (08:49)
[2021-02-09] MEDS: ENOXAPARIN SOD 40 MG/0.4 ML SYRINGE SC SCH (08:49)
[2021-02-09] MEDS: CLOPIDOGREL BISULFATE 75 MG TAB PO SCH (08:49)
[2021-02-09] MEDS: ASPirin 81 mg TAB PO SCH (08:49)
[2021-02-09] MEDS: FUROSEMIDE 20 MG TAB PO SCH (08:50)
[2021-02-09 08:51] VITALS: BP 102/68
[2021-02-09 11:39] LABS: Calcium 8.7 mg/dL (8.5-10.1); Potassium 3.9 mmol/L (3.5-5.1)
[2021-02-09 11:41] LABS: BUN/Creatinine Ratio 14.3
[2021-02-09] MEDS: SODIUM FERR GLUC 125 MG in NS 100 ML IV SCH (11:52)
[2021-02-09 13:27] VITALS: BP 94/58
[2021-02-09 17:05] VITALS: BP 100/59
[2021-02-09] MEDS: ATORVASTATIN 20 MG TAB PO SCH (21:39)
[2021-02-09 22:00] VITALS: BP 98/60
[2021-02-10] MEDS: TEMAZEPAM 15 MG CAP PO PRN ×2 (00:46→21:32)
[2021-02-10 05:00] VITALS: BP 111/70
[2021-02-10 06:42] LABS: INR 1.13 (0.9-1.15); Partial Thromboplastin Time 32.8 sec (23.6-33.0)
[2021-02-10] MEDS: Ensure HIGH Protein Chocolate 8oz Bottle PO SCH ×2 (08:00→18:12)
[2021-02-10 09:00] VITALS: BP 99/71
[2021-02-10 09:36] LABS: BUN/Creatinine Ratio 16.6; Calcium 8.7 mg/dL (8.5-10.1); Potassium 3.8 mmol/L (3.5-5.1)
[2021-02-10] MEDS: ENOXAPARIN SOD 40 MG/0.4 ML SYRINGE SC SCH (10:00)
[2021-02-10] MEDS: SODIUM FERR GLUC 125 MG in NS 100 ML IV SCH ×2 (12:57→16:55)
[2021-02-10 13:00] VITALS: BP 99/66
[2021-02-10] MEDS: ASPirin 81 mg TAB PO SCH (16:54)
[2021-02-10] MEDS: FUROSEMIDE 20 MG TAB PO SCH (16:55)
[2021-02-10] MEDS: MAGNESIUM OXIDE 400 MG TAB PO SCH (16:55)
[2021-02-10] MEDS: CLOPIDOGREL BISULFATE 75 MG TAB PO SCH (16:55)
[2021-02-10] MEDS: PANTOPRAZOLE 40 MG TAB PO SCH (16:55)
[2021-02-10 17:00] VITALS: BP 117/78
[2021-02-10] MEDS: ATORVASTATIN 20 MG TAB PO SCH (21:31)
[2021-02-10 22:00] VITALS: BP 100/57
[2021-02-11 05:00] VITALS: BP 107/62
[2021-02-11] MEDS: Ensure HIGH Protein Chocolate 8oz Bottle PO SCH ×2 (08:00→18:43)
[2021-02-11 09:00] VITALS: BP 102/70
[2021-02-11] MEDS: ASPirin 81 mg TAB PO SCH ×2 (10:00→10:12)
[2021-02-11] MEDS: CLOPIDOGREL BISULFATE 75 MG TAB PO SCH ×2 (10:00→10:10)
[2021-02-11] MEDS: ENOXAPARIN SOD 40 MG/0.4 ML SYRINGE SC SCH ×2 (10:00→10:12)
[2021-02-11] MEDS: PANTOPRAZOLE 40 MG TAB PO SCH (10:11)
[2021-02-11] MEDS: FUROSEMIDE 20 MG TAB PO SCH (10:11)
[2021-02-11] MEDS: MAGNESIUM OXIDE 400 MG TAB PO SCH (10:12)
[2021-02-11] MEDS ORDERED: ONDANSETRON HCL 4 MG/2 ML VIAL ONE (11:51)
[2021-02-11] MEDS ORDERED: SODIUM CHLORIDE LOCK 0 ML ONE (11:51)
[2021-02-11] MEDS ORDERED: PROPOFOL 10 MG/ML 20 ML IV ONE (11:51)
[2021-02-11] MEDS ORDERED: MIDAZOLAM HCL 2MG/2ML 2ml VIAL (1mg/ml) ONE (11:51)
[2021-02-11] MEDS ORDERED: fentaNYL CITRATE 100 MCG/2 ML VL ONE (11:51)
[2021-02-11] MEDS: SODIUM FERR GLUC 125 MG in NS 100 ML IV SCH (12:00)
[2021-02-11] MEDS ORDERED: BUPIVACAINE W/ EPINEPH 0.5% MPF 30ML VIAL IJ ONE (12:45)
[2021-02-11] MEDS ORDERED: LIDOCAINE 2%HCL (LOCAL ANESTH.) INJ 20ML MDV ONE (16:16)
[2021-02-11 17:00] VITALS: BP 125/82
[2021-02-11 22:00] VITALS: BP 116/66
[2021-02-11] MEDS: ATORVASTATIN 20 MG TAB PO SCH (22:05)
[2021-02-12 05:00] VITALS: BP 118/69
[2021-02-12 08:00] VITALS: BP 94/71
[2021-02-12] MEDS: FUROSEMIDE 20 MG TAB PO SCH (11:03)
[2021-02-12] MEDS: Ensure HIGH Protein Chocolate 8oz Bottle PO SCH ×2 (11:03→18:00)
[2021-02-12] MEDS: ASPirin 81 mg TAB PO SCH (11:03)
[2021-02-12] MEDS: MAGNESIUM OXIDE 400 MG TAB PO SCH (11:04)
[2021-02-12] MEDS: ENOXAPARIN SOD 40 MG/0.4 ML SYRINGE SC SCH (11:04)
[2021-02-12] MEDS: PANTOPRAZOLE 40 MG TAB PO SCH (11:04)
[2021-02-12] MEDS: CLOPIDOGREL BISULFATE 75 MG TAB PO SCH (11:04)
[2021-02-12 12:00] VITALS: BP 115/65
[2021-02-12] MEDS: SODIUM FERR GLUC 125 MG in NS 100 ML IV SCH (15:31)
[2021-02-12 16:58] VITALS: BP 97/67
[2021-02-12] MEDS: ATORVASTATIN 20 MG TAB PO SCH (21:01)
[2021-02-12 22:00] VITALS: BP 114/68
[2021-02-12] MEDS: TEMAZEPAM 15 MG CAP PO PRN (23:24)
[2021-02-13 05:00] VITALS: BP 110/62
[2021-02-13] MEDS: Ensure HIGH Protein Chocolate 8oz Bottle PO SCH ×2 (08:00→18:00)
[2021-02-13 09:00] VITALS: BP 118/66
[2021-02-13] MEDS: FUROSEMIDE 20 MG TAB PO SCH (10:00)
[2021-02-13] MEDS: ASPirin 81 mg TAB PO SCH (10:00)
[2021-02-13] MEDS: MAGNESIUM OXIDE 400 MG TAB PO SCH (10:00)
[2021-02-13] MEDS: CLOPIDOGREL BISULFATE 75 MG TAB PO SCH (10:00)
[2021-02-13] MEDS: PANTOPRAZOLE 40 MG TAB PO SCH (10:00)
[2021-02-13] MEDS: ENOXAPARIN SOD 40 MG/0.4 ML SYRINGE SC SCH (10:00)
[2021-02-13] MEDS: SODIUM FERR GLUC 125 MG in NS 100 ML IV SCH (12:00)
[2021-02-13 13:25] VITALS: BP 106/70
[2021-02-13 17:20] VITALS: BP 118/64
[2021-02-13 22:00] VITALS: BP 105/66
[2021-02-13] MEDS: ATORVASTATIN 20 MG TAB PO SCH (22:36)
[2021-02-14 05:00] VITALS: BP 121/61
[2021-02-14 07:35] VITALS: BP 97/62
[2021-02-14] MEDS: Ensure HIGH Protein Chocolate 8oz Bottle PO SCH ×2 (08:07→17:15)
[2021-02-14 09:17] VITALS: BP 97/62
[2021-02-14] MEDS: ASPirin 81 mg TAB PO SCH (10:27)
[2021-02-14] MEDS: PANTOPRAZOLE 40 MG TAB PO SCH (10:27)
[2021-02-14] MEDS: CLOPIDOGREL BISULFATE 75 MG TAB PO SCH (10:27)
[2021-02-14] MEDS: MAGNESIUM OXIDE 400 MG TAB PO SCH (10:27)
[2021-02-14] MEDS: ENOXAPARIN SOD 40 MG/0.4 ML SYRINGE SC SCH (10:28)
[2021-02-14] MEDS: FUROSEMIDE 20 MG TAB PO SCH (10:32)
[2021-02-14] MEDS: SODIUM FERR GLUC 125 MG in NS 100 ML IV SCH (12:31)
[2021-02-14 13:07] VITALS: BP 107/59
[2021-02-14 17:21] VITALS: BP 104/62
[2021-02-14] MEDS: ATORVASTATIN 20 MG TAB PO SCH (21:03)
[2021-02-14 22:00] VITALS: BP 102/65
[2021-02-15] VITALS (7 sets, daily range): BP systolic 99–109; BP diastolic 65–71
[2021-02-15 07:20] LABS: Hematocrit 25.2 % (41.0-53.0); Hemoglobin 8.8 g/dL (13.5-17.5)
[2021-02-15 07:31] LABS: BUN/Creatinine Ratio 15.2; Calcium 8.7 mg/dL (8.5-10.1); Magnesium 1.8 mg/dL (1.6-2.6); Potassium 3.9 mmol/L (3.5-5.1)
[2021-02-15] MEDS: Ensure HIGH Protein Chocolate 8oz Bottle PO SCH ×2 (08:00→18:04)
[2021-02-15] MEDS: MAGNESIUM OXIDE 400 MG TAB PO SCH (10:52)
[2021-02-15] MEDS: FUROSEMIDE 20 MG TAB PO SCH (10:52)
[2021-02-15] MEDS: CLOPIDOGREL BISULFATE 75 MG TAB PO SCH (10:52)
[2021-02-15] MEDS: PANTOPRAZOLE 40 MG TAB PO SCH (10:52)
[2021-02-15] MEDS: ASPirin 81 mg TAB PO SCH (10:52)
[2021-02-15] MEDS: ENOXAPARIN SOD 40 MG/0.4 ML SYRINGE SC SCH (10:55)
[2021-02-15] MEDS: ATORVASTATIN 20 MG TAB PO SCH (21:21)
[2021-02-16 05:00] VITALS: BP 122/68
[2021-02-16] MEDS: Ensure HIGH Protein Chocolate 8oz Bottle PO SCH ×2 (08:00→16:43)
[2021-02-16 09:00] VITALS: BP 115/65
[2021-02-16] MEDS: ENOXAPARIN SOD 40 MG/0.4 ML SYRINGE SC SCH (10:00)
[2021-02-16] MEDS: MAGNESIUM OXIDE 400 MG TAB PO SCH (10:48)
[2021-02-16] MEDS: PANTOPRAZOLE 40 MG TAB PO SCH (10:49)
[2021-02-16] MEDS: CLOPIDOGREL BISULFATE 75 MG TAB PO SCH (10:49)
[2021-02-16] MEDS: ASPirin 81 mg TAB PO SCH (10:49)
[2021-02-16] MEDS: FUROSEMIDE 20 MG TAB PO SCH (10:51)
[2021-02-16 13:00] VITALS: BP 118/66
[2021-02-16 17:00] VITALS: BP 111/69
[2021-02-16] MEDS: ATORVASTATIN 20 MG TAB PO SCH (21:01)
[2021-02-16 22:00] VITALS: BP 108/68
[2021-02-17 04:52] VITALS: BP 110/66
[2021-02-17 08:00] VITALS: BP 95/63
[2021-02-17] MEDS: Ensure HIGH Protein Chocolate 8oz Bottle PO SCH ×2 (08:49→18:00)
[2021-02-17] MEDS: ASPirin 81 mg TAB PO SCH (08:49)
[2021-02-17] MEDS: FUROSEMIDE 20 MG TAB PO SCH (08:49)
[2021-02-17] MEDS: CLOPIDOGREL BISULFATE 75 MG TAB PO SCH (08:50)
[2021-02-17] MEDS: MAGNESIUM OXIDE 400 MG TAB PO SCH (08:50)
[2021-02-17] MEDS: ENOXAPARIN SOD 40 MG/0.4 ML SYRINGE SC SCH (08:50)
[2021-02-17] MEDS: PANTOPRAZOLE 40 MG TAB PO SCH (08:50)
[2021-02-17 12:00] VITALS: BP 99/64
[2021-02-17 16:00] VITALS: BP 110/72
== END 2021-02-17 18:07 | DRG 683 ==
LOC: INTOOBSV 04:58 → TELE-CENTR 04:58 → OBSVTOIN 07:01 → CENTRAL 02-16 11:31
PROVIDERS: ADMIT Internal Medicine; ATTEND Internal Medicine
DX: N17.0 Acute kidney failure with tubular necrosis (principal); J44.0 Chronic obstructive pulmonary disease with (acute) lower respiratory infection; E44.0 Moderate protein-calorie malnutrition; M10.9 Gout, unspecified; D63.8 Anemia in other chronic diseases classified elsewhere; E78.5 Hyperlipidemia, unspecified; I12.9 Hypertensive chronic kidney disease with stage 1 through stage 4 chronic kidney disease, or unspecified chronic kidney disease; I25.10 Atherosclerotic heart disease of native coronary artery without angina pectoris; N18.30 Chronic kidney disease, stage 3 unspecified; Z95.1 Presence of aortocoronary bypass graft; Z99.2 Dependence on renal dialysis; Z75.1 Person awaiting admission to adequate facility elsewhere; Z68.24 Body mass index [BMI] 24.0-24.9, adult
CPT/HCPCS: 36415; 71045; 80048; 80053; 81001; 82270; 82607; 82668; 82746; 83540; 83550; 83615; 83735; 84100; 84154; 84484; 85014; 85018; 85025; 85045; 85610; 85730; 86850; 86900; 86901; 87081; 87426; 93005; 93306; 97110; 97116; 97530; G0378; J2250; J2405; J2704

== ENCOUNTER → 2021-12-30 | Outpatient (CLI) | payer OTHER, MEDICARE, MEDICAID ==
[2021-12-30 09:37] LABS: Basophils # (auto) 0.1 10 ^3/uL (0-0.2); Basophils % (auto) 0.8 % (0.0-2.0); Eosinophils # (auto) 0.3 10 ^3/uL (0-0.8); Hematocrit 37.3 % (41.0-53.0); Hemoglobin 12.4 g/dL (13.5-17.5); Lymphocytes # (auto) 1.9 10 ^3/uL (0.4-5.4); Lymphocytes % (auto) 29.6 % (10.0-50.0); Mean Corpuscular Hgb Conc. 33.3 g/dL (32.0-36.0); Monocytes # (auto) 0.4 10 ^3/uL (0-1.3); Monocytes % (auto) 6.2 % (0.0-12.0); Neutrophils # (auto) 3.7 10 ^3/uL (1.6-8.6); Neutrophils % (auto) 58.4 % (37.0-80.0); Red Blood Cells 4.14 10^6/uL (4.5-5.90); Red Cell Distribution Width 13.9 % (11.8-14.3); White Blood Cell 6.4 10^3/uL (4.4-10.8)
[2021-12-30 10:11] LABS: Urine Bacteria NONE SEEN /hpf (None Seen); Urine Blood Negative /uL (Negative); Urine Specific Gravity 1.014 (1.001-1.035); Urine WBC <1 /hpf (0 - 3)
[2021-12-30 10:16] LABS: Calcium 9.7 mg/dL (8.5-10.1); Potassium 4.4 mmol/L (3.5-5.1)
[2021-12-30 10:24] LABS: Albumin 4.2 g/dL (3.4-5.0); BUN/Creatinine Ratio 13.9; Bilirubin, Total 0.6 mg/dL (0.2-1.0); Total Protein 7.3 g/dL (6.4-8.2); Uric Acid 9.4 mg/dL (3.5-7.2)
== END | disposition home or self-care (01) ==
LOC: LAB 09:22
PROVIDERS: ATTEND Internal Medicine
DX: Z00.00 Encounter for general adult medical examination without abnormal findings (principal); N40.1 Benign prostatic hyperplasia with lower urinary tract symptoms; D64.9 Anemia, unspecified
CPT/HCPCS: 36415; 80053; 80061; 81001; 83036; 84443; 84550; 85025

== ENCOUNTER → 2022-05-02 | Outpatient (CLI) | payer OTHER, MEDICAID | END | disposition home or self-care (01) | LOC: XY 11:11 | PROVIDERS: ATTEND Internal Medicine | DX: R21 Rash and other nonspecific skin eruption (principal) | CPT/HCPCS: 93925 ==